=== PATIENT | female | born 1960 | race Caucasian/White ===

== ENCOUNTER → 2017-04-09 | Outpatient (CLI) | payer OTHER ==
--- NOTE | 2017-04-09 11:01 | DIAGNOSTIC IMAGING REPORT ---
CT THORACIC SPINE WITHOUT CT DOSE: 437.33 mGycm CLINICAL HISTORY: T4 VERTEBRAL FX back pain TECHNIQUE: Helical images were acquired in the transverse plane. Sagittal and coronal reformatted images were acquired. A dose lowering technique was utilized adhering to the principles of ALARA. COMPARISON STUDY: Conventional radiographic study dated 07/04/2015 FINDINGS: There is an old severe T4 fracture demonstrating greater than 90% loss in height anteriorly. There is no significant retropulsion. No acute fractures are visualized. There is mild facet joint and ligamentous hypertrophy most pronounced on the right at the T8-9 level, and bilaterally at the T9-T10 level, and T10-T11 level No destructive lesions are visualized. There are punctate bilateral renal calculi versus vascular calcifications. No paraspinal masses are visualized on this noncontrast examination. IMPRESSION: 1. No acute fractures or traumatic subluxations 2. Old severe T4 fracture. 3. Mild multilevel degenerative change Electronically signed by: Julio Cesar Chan M.D. 04/09/2017 10:59 AM Dictated Date/Time: 04/09/2017 10:55 AM
== END | disposition home or self-care (01) ==
LOC: C.CTS 10:38
PROVIDERS: ATTEND Physical Medicine & Rehabilitation
DX: S22.041A Stable burst fracture of fourth thoracic vertebra, initial encounter for closed fracture (principal); X58.XXXA Exposure to other specified factors, initial encounter